=== PATIENT | female | born 1995 ===

== ENCOUNTER 2022-07-24 22:02 | Emergency (ER) | payer SELFPAY ==
[2022-07-24] MEDS ORDERED: Ondansetron PF 4 MG/2 ML Vial ONE (22:30)
[2022-07-24] MEDS ORDERED: Lorazepam 2 MG/ML VIAL ONE (22:30)
== END 2022-07-25 01:29 | disposition home or self-care (01) ==
LOC: CSHERS 22:02
DX: F41.9 Anxiety disorder, unspecified (principal); T40.711A Poisoning by cannabis, accidental (unintentional), initial encounter
CPT/HCPCS: 93005; 96374; 96375; J2060; J2405